=== PATIENT | male | born 1960 | race African-American/Black ===

== ENCOUNTER 2025-02-22 18:13 | Emergency (ER) | payer MEDICAID, OTHER ==
[~2025-02-22] VITALS: Ht 180.3 cm; Wt 124.7 kg
--- NOTE | 2025-02-22 19:45 | ED.PDOC ---
HPI Comments This is a 64 year-old male who presents to the ED with a chief complaint of L hand pain and Laceration to the L hand, 3rd and 4th digit S/P fall hours ago. Patient states he was walking and fell done the stairs, landing on the L hand. Patient reports a possible fracture to the L hand as his hand "bent the opposite way." Patient has no further complaints or modifying factors at this time. Patient otherwise denies any head trauma, LOC, dizziness, weakness, or fatigue. Chief Complaint: Upper Extremity Time Seen by MD: 19:31 Reviewed Notes: Medications, Allergies Allergies: Coded Allergies: NO KNOWN ALLERGIES (Unverified , 02/22/25) Home Meds Active Scripts Naproxen (NAPROSYN TABLET) 500 Mg Tb, 1 TAB PO BID PRN, #12 TAB 1 Refill Prov:MORIS ANGULO 02/22/25 Cephalexin Monohydrate (Cephalexin) 500 Mg Tab, 1000 MG PO BID for 5 Days, #20 TAB Prov:MORIS ANGULO 02/22/25 Information Source: Patient Mode of Arrival: Ambulatory Severity: Moderate Severity of Laceration: Controlled Bleeding Complexity: Simple Timing: Hours Prehospital treatment: None Laceration Location: Digit #3, Digit #4 (L hand ) Mechanism: Fall Laceration Length (cm): 3 Skin Type: Jagged, Irregular Depth of Injury: Skin Tendon Injury: 0% Distal Function Deficits: Motor, Pulse Capillary Refill: < 3 seconds Tender: Severe Discharge: None Erythema: None Associated Signs and Symptoms: Other (dislocation of the 4th digit and laceration to the L hand, 3rd and 4th digit ) Past Medical History PAST MEDICAL HISTORY: Denies Surgical History: Denies all surgeries Family History Family History: Unknown Social History Smoker: Unknown Alcohol: Unknown Drugs: Unknown Lives In: Home Constitutional: denies: chills, diaphoresis, fatigue, fever, malaise, sweats, weakness, others EENTM: denies: blurred vision, double vision, ear bleeding, ear discharge, ear drainage, ear pain, ear ringing, eye pain, eye redness, hearing loss, mouth pain, mouth swelling, nasal discharge, nose bleeding, nose congestion, nose pain, photophobia, tearing, throat pain, throat swelling, voice changes, others Respiratory: denies: cough, hemoptysis, orthopnea, SOB at rest, shortness of breath, SOB with excertion, stridor, wheezing, others Cardiovascular: denies: chest pain, dizzy spells, diaphoresis, Dyspnea on exertion, edema, irregular heart beat, left arm pain, lightheadedness, palpitations, PND, syncope, others Gastrointestinal: denies: abdomen distended, abdominal pain, blood streaked bowels, constipated, diarrhea, dysphagia, difficulty swallowing, hematemesis, melena, nausea, poor appetite, poor fluid intake, rectal bleeding, rectal pain, vomiting, others Genitourinary: denies: burning, dysuria, flank pain, frequency, hematuria, incontinence, penile discharge, penile sore, pain, testicle pain, testicle swel ling, urgency, others Neurological: denies: dizziness, fainting, headache, left sided numbness, left sided weakness, numbness, paresthesia, pre-existing deficit, right sided numbness, right sided weakness, seizure, speech problems, tingling, tremors, weakness, others Musculoskeletal: reports: joint pain; denies: back pain, gout, joint swelling, muscle pain, muscle stiffness, neck pain, others Integumetry: reports: laceration; denies: bruises, change in color, change in hair/nails, dryness, lesions, lumps, rash, wounds, others Allergic/Immunocompromised: denies: Difficulty Healing, Frequent Infections, Hives, Itching, others Hematologic/Lymphatic: denies: anemia, blood clots, easy bleeding, easy bruising, swollen glands, others Endocrine: denies: excessive hunger, excessive sweating, excessive thirst, excessive urination, flushing, intolerance to cold, intolerance to heat, unexplained weight gain, unexplained weight loss, others Psychiatric: denies: anxiety, bipolar disorder, depression, hopeless, panic disorder, schizophrenia, sleepless, suicidal, others All Other Systems: Reviewed and Negative Physical Exam General Appearance: Mild Distress, Normal HEENT: Normal ENT Inspection, Pharynx Normal, TMs Normal Neck: Full Range of Motion, Non-Tender, Normal, Normal Inspection Respiratory: Chest Non-Tender, Lungs Clear, No Accessory Muscle Use, No Respiratory Distress, Normal Breath Sounds Cardiovascular: No Edema, No JVD, No Murmur, No Gallop, Normal Peripheral Pulses, Regular Rate/Rhythm Breast Exam: Deferred Gastrointestinal: No Organomegaly, Non Tender, No Pulsatile Mass, Normal Bowel Sounds, Soft Genitalia: Deferred Pelvic: Deferred Rectal: Deferred Extremities: Normal capillary refill, Normal range of motion, Non-tender, Other Musculoskeletal : Apperance: Normal Neurologic: Alert, plastic sewer II-XII nml as Tested, No Motor Deficits, Normal Affect, Normal Mood, No Sensory Deficits Cerebellar Function: Normal Reflexes: Normal Skin: Dry, Lacerations (L hand, 3cm laceration to the 3rd digit and 2.5cm laceration to the 4th digit ), Normal Color, Warm Lymphatic: No Adenopathy Was a procedure done? Was a procedure done?: Yes Sedation Sedation?: No Laceration Repair : Location Left Hand Length 3cm laceration of the 3rd digit and 2.5cm laceration of the 4th digit Anesthetic: Lidocaine, Without epi Laceration Repair Prep: Saline Laceration Repair Wound Comple: epidermis/dermis repair Laceration Repair: Number of sutures (4 sutures to the 3rd digit ), Simple, Non-adherent gauze Informed consent obtained: Yes Risks, benefits, and alternati: Yes Other Procedure Procedure Digit Phalanx Reduction Anesthetic Lidocaine Success Excellent Reduction post xray view Informed consent obtained: Yes Risks, benefits, and alternati: Yes Differential diagnosis Generic Laceration: Fracture, Retained Foriegn Body, Laceration, Avulsion, Other (Dislocation ) X-Ray, Labs, Meds, VS Vital Signs Date Time Temp Pulse Resp B/P (MAP) Pulse Ox O2 Delivery O2 Flow Rate FiO2 02/22/25 22:08 95 18 98 Room Air 02/22/25 22:08 97.1 95 18 153/89 (110) 98 97.1 02/22/25 18:18 97.4 96 18 176/102 99 97.4 Current Medications Medications (Trade) Dose Ordered Sig/Gerardo Route Start Time Stop Time Status Last Admin Diphtheria/ Tetanus/Acell Pertussis (Boostrix T-Dap) 0.5 ml ONCE ONCE IM 02/22/25 21:30 02/22/25 21:31 DC 02/22/25 22:10 Ibuprofen (Motrin Tablet) 800 mg ONCE ONCE PO 02/22/25 21:30 02/22/25 21:31 DC 02/22/25 22:08 Acetaminophen (Tylenol Tablet) 650 mg ONCE ONCE PO 02/22/25 21:30 02/22/25 21:31 DC 02/22/25 22:09 [place] [id number] Ph: [phone] DIAGNOSTIC IMAGING Diagnostic Imaging Report : [id number] Signed PATIENT: MUNIRA GORDILLO IIIACCT: [id number] UNIT: [id number] : 1960 LOC: ER ROOM / BED: / AGE / SEX: 64 / M ADM STATUS: REG ER SERVICE 42 ORDERING PHYSICIAN: MORIS ANGULO PROCEDURE(s): LHAN - L HAND 3V XRAY REASON: ground level fall laceration likely fx ORDER NUMBER(s): [id number], ACCESSION NUMBER(s): [id number] CLINICAL INDICATION: ground level fall laceration likely fx TECHNIQUE: XY L HAND 3V XRAY Comparison: None FINDINGS/IMPRESSION: : There is dorsal and ulnar dislocation of the ring finger PIP joint. No acute fracture. Soft tissue swelling surrounding the ring finger. ATED BY: CARLOS HARRIS MD DICTATED DATE/TIME: 02/22/252099 SIGNED BY: CARLOS HARRIS MD SIGNED DATE/TIME: 02/22/252099 CC: [place] [id number] Ph: [phone] DIAGNOSTIC IMAGING Diagnostic Imaging Report : [id number] Signed PATIENT: MUNIRA GORDILLO IIIACCT: [id number] UNIT: [id number] : 1960 LOC: ER ROOM / BED: / AGE / SEX: 64 / M ADM STATUS: REG ER SERVICE 17 ORDERING PHYSICIAN: MORIS ANGULO PROCEDURE(s): LHAN2 - L HAND 2V XRAY REASON: post reduction ORDER NUMBER(s): [id number], ACCESSION NUMBER(s): [id number] CLINICAL INDICATION: post reduction TECHNIQUE: XY L HAND 2V XRAY Comparison: XY L HAND 3V XRAY on DOS: 02/22/25 FINDINGS/IMPRESSION: : Satisfactory alignment status post interval reduction of the 4th proximal interphalangeal joint. There is no evidence of acute fracture. Soft tissue irregularity suggests possible laceration with swelling. ATED BY: EHSAN BOSTON MD DICTATED DATE/TIME: 02/22/252217 SIGNED BY: EHSAN BOSTON MD SIGNED DATE/TIME: 02/22/252217 CC: Time of 1ST Reevaluation: 20:31 Reevaluation 1ST: Unchanged Patient Education/Counseling: Diagnosis, Treatment Family Education/Counseling: No Family Present Departure 1 Departure Time of Disposition: 22:14 Impression: Primary Impression: Ground-level fall Additional Impressions: Dislocation of left middle finger Qualified Codes: S63.253A - Unspecified dislocation of left middle finger, initial encounter Laceration of left middle finger Qualified Codes: S61.213A - Laceration without foreign body of left middle finger without damage to nail, initial encounter Laceration of left ring finger Qualified Codes: S61.215A - Laceration without foreign body of left ring finger without damage to nail, initial encounter Disposition: 01 HOME / SELF CARE / HOMELESS Condition: Stable Additional Instructions: Follow up with PCP in X2 days for wound check. Take medications and antibiotics as prescribed. Return to the ED for any new or worsening symptoms. e-Prescriptions Naproxen (NAPROSYN TABLET) 500 Mg Tb 1 TAB PO BID PRN, #12 TAB 1 Refill Prov: MORIS ANGULO 02/22/25 Cephalexin Monohydrate (Cephalexin) 500 Mg Tab 1000 MG PO BID for 5 Days, #20 TAB Prov: MORIS ANGULO 02/22/25 Discharged With: Self Critical Care Note Critical Care Time?: No Stability Stability form required: No Heart Score Heart Score: Heart Score Response (Comments) Value History N/A 0 EKG N/A 0 Age N/A 0 Risk Factors N/A 0 Troponin N/A 0 Total 0 I personally scribed for ER (EMERGENCY) on 02/22/25 at 19:45. Electronically submitted by Christy [employer]). I personally scribed for ER (EMERGENCY) on 02/22/25 at 21:14. Electronically submitted by Christy [employer]). I personally scribed for ER (EMERGENCY) on 02/22/25 at 21:17. Electronically submitted by Christy Sauer ([employer]). I personally scribed for ER (EMERGENCY) on 02/22/25 at 22:10. Electronically submitted by Christy Sauer ([facility]). I personally scribed for ER (EMERGENCY) on 02/22/25 at 22:15. Electronically submitted by Christy Sauer ([employer]). ER Feb 22, 2025 19:45 MORIS ANGULO Feb 23, 2025 03:58
--- NOTE | 2025-02-22 21:03 | DVH ---
CLINICAL INDICATION: ground level fall laceration likely fx TECHNIQUE: XY L HAND 3V XRAY Comparison: None FINDINGS/IMPRESSION: : There is dorsal and ulnar dislocation of the ring finger PIP joint. No acute fracture. Soft tissue swelling surrounding the ring finger.
[2025-02-22] MEDS: LIDOCAINE 1% HCL (LOCAL ANESTH.) INJ 20ML MDV ONE (21:07)
[2025-02-22 22:08] VITALS: BP 153/89; PULSE 95; RESP 18; TEMP 97.1; O2SAT 98
[2025-02-22] MEDS: IBUPROFEN 800 MG TAB PO ONE (22:08)
[2025-02-22] MEDS: ACETAMINOPHEN 325 MG TAB PO ONE (22:09)
[2025-02-22] MEDS: TETANUS-DIPTH-ACEL PERTUSSIS 0.5ML SYR Tdap IM ONE (22:10)
--- NOTE | 2025-02-22 22:20 | DVH ---
CLINICAL INDICATION: post reduction TECHNIQUE: XY L HAND 2V XRAY Comparison: XY L HAND 3V XRAY on DOS: 02/22/25 FINDINGS/IMPRESSION: : Satisfactory alignment status post interval reduction of the 4th proximal interphalangeal joint. There is no evidence of acute fracture. Soft tissue irregularity suggests possible laceration with swelling.
[2025-02-22] MEDS ORDERED: CEPH500T PO (22:29)
[2025-02-22] MEDS ORDERED: NAP500T PO (22:30)
[2025-02-23] MEDS ORDERED: NAPROXEN 500 MG TAB PO ONE (10:00)
[2025-02-23] MEDS ORDERED: CEPHALEXIN 250 MG CAP PO ONE (10:00)
== END 2025-02-22 22:40 | disposition home or self-care (01) ==
LOC: ER 18:13
DX: S63.253A Unspecified dislocation of left middle finger, initial encounter (principal); S61.213A Laceration without foreign body of left middle finger without damage to nail, initial encounter; S61.215A Laceration without foreign body of left ring finger without damage to nail, initial encounter; F17.200 Nicotine dependence, unspecified, uncomplicated; W18.30XA Fall on same level, unspecified, initial encounter; Y93.01 Activity, walking, marching and hiking; Y92.89 Other specified places as the place of occurrence of the external cause; Y99.8 Other external cause status
CPT/HCPCS: 12002; 26770; 73120; 73130; 90471; 90715; 99284; A4649; J2003; 26735